=== PATIENT | female | born 1990 | race Caucasian/White ===

== ENCOUNTER 2017-03-19 19:56 | Emergency (ER) | payer OTHER ==
[2017-03-19 20:08] VITALS: BMI 27.3
--- NOTE | 2017-03-19 20:49 | PDOC ---
History of Present Illness - General History Source: Patient Exam Limitations: No Limitations - History of Present Illness Initial Comments: 03/19/17 20:57 The patient is a 26 year old female, 11 weeks , , with no significant past medical history, who presents to the ER with nausea, vomiting, and lightheadedness for several days. Patient states she had several episodes of nausea and nonbilious/nonbloody vomiting. Patient says she cannot tolerate solid PO secondary to the nausea and vomiting. She states her last ultrasound on March 06 was normal. Denies fever, chills, cough Denies abdominal pain, diarrhea Denies syncope Denies headache Denies dysuria, hematuria Denies weakness <Dhara Feldman - Last Filed: 03/19/17 23:29> - General History Source: Patient <Aurelio De La Rosa - Last Filed: 03/20/17 01:53> - General Chief Complaint: Lightheaded Stated Complaint: LIGHTHEADED Time Seen by Provider: 03/19/17 20:45 Past History <Dhara Feldman - Last Filed: 03/19/17 23:29> - Past Medical History Cardiac Disorders: Yes (HEART MURMUR) Diabetes: Yes Thyroid Disease: Yes (HYPO) - Reproductive History Therapeutic (s) & number: No - Immunization History Immunization Up to Date: Yes - Psycho/Social/Smoking Cessation Hx Anxiety: No Suicidal Ideation: No Smoking Status: Yes Smoking History: Former smoker Have you smoked in the past 12 months: Yes Number of Cigarettes Smoked Daily: 20 If you are a former smoker, when did you quit?: 01/2017 Information on smoking cessation initiated: No Hx Alcohol Use: Yes Substance Use Type: Alcohol, Marijuana <Aurelio De La Rosa - Last Filed: 03/20/17 01:53> - Past Medical History Allergies/Adverse Reactions: Allergies Allergy/AdvReac Type Severity Reaction Status Date / Time Penicillins Allergy Verified 01/01/15 16:56 Home Medications: Ambulatory Orders Metoclopramide HCl [Reglan -] 10 mg PO TID #30 tablet 03/20/17 Review of Systems - Review of Systems Able to Perform ROS?: Yes Comments:: 03/19/17 20:57 CONSTITUTIONAL: Present: (+) Lightheadedness secondary to nausea and vomiting Absent: fever, no chills, no fatigue EYES: Absent: visual changes ENT: Absent: ear pain, no sore throat CARDIOVASCULAR: Absent: chest pain, no palpitations RESPIRATORY: Absent: cough, no SOB GI: Present: (+) Nausea, (+) vomiting Absent: abdominal pain, no constipation, no diarrhea GENITOURINARY: Absent: dysuria, no frequency, no hematuria MUSCULOSKELETAL: Absent: back pain, no arthralgia, no myalgia SKIN: Absent: rash NEURO: Absent: headache <PrDhara ramirez - Last Filed: 03/19/17 23:29> *Physical Exam - Vital Signs Last Vital Signs Temp Pulse Resp BP Pulse Ox 98.3 F 86 18 113/68 03/19/17 20:05 03/19/17 20:05 03/19/17 20:05 03/19/17 20:05 - Physical Exam Comments: 03/19/17 20:58 GENERAL: Well-appearing, well-nourished. Mild distress. HEENT: Normocephalic, atraumatic. PERRL, EOM intact. CARDIOVASCULAR: Normal S1, S2. Regular rate and rhythm. PULMONARY: Clear to auscultation bilaterally. ABDOMEN: Soft, non-distended, non-tender. EXTREMITIES: Normal ROM in all four extremities. No gross deformities. SKIN: Warm, dry. No rash NEUROLOGICAL: No focal neurological deficits. <PrDhara ramirez - Last Filed: 03/19/17 23:29> - Vital Signs Last Vital Signs Temp Pulse Resp BP Pulse Ox 98.3 F 86 18 113/68 03/19/17 20:05 03/19/17 20:05 03/19/17 20:05 03/19/17 20:05 <Aurelio De La Rosa - Last Filed: 03/20/17 01:53> ED Treatment Course - LABORATORY CBC & Chemistry Diagram: 03/19/17 21:02 03/19/17 22:35 <FranciaDhara - Last Filed: 03/19/17 23:29> - LABORATORY CBC & Chemistry Diagram: 03/19/17 21:02 03/19/17 22:35 <Aurelio De La Rosa - Last Filed: 03/20/17 01:53> Medical Decision Making - Medical Decision Making 03/20/17 01:53 Dr. De La Rosa: The scribe's documentation has been prepared under my direction and personally reviewed by me in its entirery. I confirm that the note above accurately reflects all work, treatment, procedures, and medical decision making performed by me. <Aurelio De La Rosa - Last Filed: 03/20/17 01:53> *DC/Admit/Observation/Transfer - Attestations Scribe Attestion: 03/19/17 20:59 Documentation prepared by Dhara Feldman, acting as medical staff assistant for Aurelio De La Rosa DO. <Dhara Feldman - Last Filed: 03/19/17 23:29> - Discharge Dispostion Admit: No <Aurelio De La Rosa - Last Filed: 03/20/17 01:53> Diagnosis at time of Disposition: Hyperemesis gravidarum - Discharge Dispostion Disposition: HOME Condition at time of disposition: Improved - Referrals Referrals: Nikolay Jewell MD [Staff Physician] - - Patient Instructions Printed Discharge Instructions: DI for Hyperemesis Gravidarum Additional Instructions: Please follow up with your metallurgist process as scheduled. Take medication as directed. Drink plenty of fluids.
[2017-03-19] MEDS ORDERED: SODIUM CHLORIDE 1,000 ML IV STA (20:50)
[2017-03-19] MEDS ORDERED: METOCLOPRAMIDE HCL INJECTION 10 MG/2 ML VIAL IVPUSH ONE (20:51)
[2017-03-19] MEDS ORDERED: DEXTROSE 5%-LACTATED RINGERS 1,000 ML IV SCH (21:00)
[2017-03-19] MEDS ORDERED: METOCLOPRAMIDE HCL INJECTION 10 MG/2 ML VIAL ONE (21:45)
[2017-03-19 22:21] LABS: BASOPHIL 0.5 % (0-2.0); EOSINOPHIL 0.5 % (0-4.5); MCH 28.4 pg (25.7-33.7); MCHC 32.6 g/dl (32.0-36.0); MEAN CELL VOLUME 87.1 fl (80-96); MEAN PLT VOLUME 9.1 fl (7.5-11.1); NEUTROPHILS 68.5 % (42.8-82.8); PLATELET COUNT 274 K/MM3 (134-434); RDW 12.7 % (11.6-15.6); WHITE BLOOD COUNT 10.4 K/mm3 (4.0-10.0)
[2017-03-19 22:29] LABS: URINE APPEARANCE CLEAR; URINE BILIRUBIN NEGATIVE (NEGATIVE); URINE COLOR STRAW; URINE GLUCOSE (UA) NEGATIVE (NEGATIVE); URINE KETONE TRACE (NEGATIVE); URINE LEUK ESTERASE NEGATIVE (NEGATIVE); URINE NITRITE NEGATIVE (NEGATIVE); URINE PROTEIN NEGATIVE (NEGATIVE); URINE UROBILINOGEN NEGATIVE E.U./dl (0.2-1.0)
[2017-03-19 22:34] LABS: URINE BLOOD 1+ (NEGATIVE)
[2017-03-19 22:46] LABS: INR 1.07 (0.82-1.09); PROTHROMBIN TIME (PATIENT) 11.8 SEC (9.98-11.88)
[2017-03-19 22:47] LABS: URINE BACTERIA RARE /hpf (NONE SEEN); URINE MUCUS RARE; URINE RBC 1 /hpf (0-3); URINE WBC 3 /hpf (3-5)
[2017-03-19 23:07] LABS: ALBUMIN 2.7 g/dl (3.4-5.0); ALK PHOS 29 U/L (45-117); ANION GAP 10 (8-16); BILIRUBIN,TOTAL 0.2 mg/dL (0.2-1.0); CALCIUM 8.3 mg/dL (8.5-10.1); CO2 22 mmol/L (21-32); CREATININE 0.5 mg/dL (0.55-1.02); GLUCOSE,RANDOM 96 mg/dL (74-106); SGOT/AST 13 U/L (15-37); SGPT/ALT 14 U/L (12-78); TOT PROT 5.7 g/dl (6.4-8.2)
[2017-03-19 23:24] LABS: MAGNESIUM 1.8 mg/dL (1.8-2.4)
[2017-03-20 01:10] LABS: ACETONE SERUM NEGATIVE (NEGATIVE)
[2017-03-20 02:05] VITALS: BP 122/64; PULSE 78; TEMP 98.6
== END 2017-03-20 02:05 | disposition home or self-care (01) ==
LOC: JER 19:56
PROC: 3E0337Z Introduction of Electrolytic and Water Balance Substance into Peripheral Vein, Percutaneous Approach (ICD-10-PCS; principal; 2017-03-19)
PROC: 3E033GC Introduction of Other Therapeutic Substance into Peripheral Vein, Percutaneous Approach (ICD-10-PCS; 2017-03-19)
DX: O26.891 Other specified pregnancy related conditions, first trimester (principal); O21.0 Mild hyperemesis gravidarum; Z3A.11 11 weeks gestation of pregnancy
CPT/HCPCS: 36415; 80053; 81003; 81015; 82009; 83690; 83735; 84702; 85025; 85610; 87086; 99283-25

== ENCOUNTER 2017-05-13 19:08 | Emergency (ER) | payer OTHER ==
[2017-05-13 19:15] VITALS: BP 126/71; PULSE 98; TEMP 97.9; BMI 29.5
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
[2017-05-13 21:42] LABS: URINE APPEARANCE CLEAR; URINE BILIRUBIN NEGATIVE (NEGATIVE); URINE BLOOD NEGATIVE (NEGATIVE); URINE COLOR STRAW; URINE GLUCOSE (UA) NEGATIVE (NEGATIVE); URINE KETONE NEGATIVE (NEGATIVE); URINE LEUK ESTERASE NEGATIVE (NEGATIVE); URINE NITRITE NEGATIVE (NEGATIVE); URINE PROTEIN NEGATIVE (NEGATIVE); URINE UROBILINOGEN NEGATIVE mg/dL (0.2-1.0)
== END 2017-05-13 23:15 | disposition home or self-care (01) ==
LOC: JER 19:08
DX: O30.002 Twin pregnancy, unspecified number of placenta and unspecified number of amniotic sacs, second trimester (principal); M54.5 Low back pain; V43.62XA Car passenger injured in collision with other type car in traffic accident, initial encounter; Y92.414 Local residential or business street as the place of occurrence of the external cause; Y93.89 Activity, other specified; Z3A.19 19 weeks gestation of pregnancy; O99.282 Endocrine, nutritional and metabolic diseases complicating pregnancy, second trimester; E03.9 Hypothyroidism, unspecified; O24.912 Unspecified diabetes mellitus in pregnancy, second trimester
CPT/HCPCS: 76815-TC; 81003; 87086; 99283-25

== ENCOUNTER 2017-06-30 14:08 | Emergency (ER) | payer OTHER ==
[2017-06-30 14:17] VITALS: BP 108/60; PULSE 105; TEMP 98.2; BMI 32.8
--- NOTE | 2017-06-30 16:03 | PDOC ---
History of Present Illness - General Chief Complaint: Shortness of Breath Stated Complaint: 26 WKS PREG/SHORTNESS OF BREATH Time Seen by Provider: 06/30/17 15:12 History Source: Patient Exam Limitations: No Limitations - History of Present Illness Initial Comments: 06/30/17 15:54 Patient is a 27F currently 27wks with twins and DM here today complaining of shortness of breath. She was seen by her obgyn today and her check up was normal with the exception of her complaining of being short of breath. This has been going on for the past month, and has been slowly getting worse. She endorses associated cough. She denies chest pain, nausea, vomiting, fevers and chills. She denies abdominal pain, cramping and any feelings of labor. Past History - Past Medical History Allergies/Adverse Reactions: Allergies Allergy/AdvReac Type Severity Reaction Status Date / Time Penicillins Allergy Verified 06/30/17 14:17 Home Medications: Ambulatory Orders NK [No Known Home Medication] 05/13/17 Cardiac Disorders: Yes (HEART MURMUR) Diabetes: Yes Thyroid Disease: Yes (HYPO) - Reproductive History (#): 4 Para: 1 Therapeutic (s) & number: No - Immunization History Immunization Up to Date: Yes - Psycho/Social/Smoking Cessation Hx Anxiety: No Suicidal Ideation: No Smoking Status: Yes Smoking History: Former smoker Have you smoked in the past 12 months: No Number of Cigarettes Smoked Daily: 20 If you are a former smoker, when did you quit?: 01/2017 Information on smoking cessation initiated: No Hx Alcohol Use: No Drug/Substance Use Hx: No Substance Use Type: None Review of Systems - Review of Systems Comments:: 06/30/17 16:03 GENERAL/CONSTITUTIONAL: No fever or chills. No weakness. HEAD, EYES, EARS, NOSE AND THROAT: No change in vision. No ear pain or discharge. No sore throat. CARDIOVASCULAR: No chest pain or shortness of breath RESPIRATORY: No cough, wheezing, or hemoptysis. GASTROINTESTINAL: Positive for nausea and vomiting. Negative for diarrhea or constipation. GENITOURINARY: No dysuria, frequency, or change in urination. SKIN: No rash NEUROLOGIC: No headache, loss of consciousness, or change in strength/sensation. HEMATOLOGIC/LYMPHATIC: No anemia, easy bleeding, or history of blood clots. ALLERGIC/IMMUNOLOGIC: No hives or skin allergy. *Physical Exam - Vital Signs Last Vital Signs Temp Pulse Resp BP Pulse Ox 98.2 F 105 H 19 108/60 100 06/30/17 14:14 06/30/17 14:14 06/30/17 14:14 06/30/17 14:14 06/30/17 14:14 - Physical Exam Comments: 06/30/17 16:07 GENERAL: Awake, alert, and fully oriented, in no acute distress HEAD: No signs of trauma, normocephalic, atraumatic EYES: PERRLA, EOMI, sclera anicteric, conjunctiva clear ENT: Auricles normal inspection, hearing grossly normal, nares patent, oropharynx clear without exudates. Moist mucosa NECK: Normal ROM, supple, no lymphadenopathy, JVD, or masses LUNGS: No distress, speaks full sentences, clear to auscultation bilaterally HEART: Regular rate and rhythm, normal S1 and S2, no murmurs, rubs or gallops, peripheral pulses normal and equal bilaterally. ABDOMEN: Nontender, normoactive bowel sounds. No guarding, no rebound. EXTREMITIES: Normal inspection, Normal range of motion, no edema. No clubbing or cyanosis. NEUROLOGICAL: Cranial nerves II through XII grossly intact. Normal speech, no focal sensorimotor deficits SKIN: Warm, Dry, normal turgor, no rashes or lesions noted. Medical Decision Making - Medical Decision Making 06/30/17 16:07 Patient is a 27F 27wk woman here today complaining of SOB. Resting comfortably, laughing in room, lungs clear. Vital signs normal and stable. Will discharge to L&D, can go home if cleared from there. 06/30/17 18:05 Patient left without discharge paperwork. Nurse [facility] contacted patient who said she left because she needed to catch a bus. *DC/Admit/Observation/Transfer Diagnosis at time of Disposition: Qualifiers: Weeks of gestation: 27 weeks Qualified Code(s): Z3A.27 - 27 weeks gestation of - Discharge Dispostion Disposition: HOME Condition at time of disposition: Good Admit: No - Patient Instructions Additional Instructions: Please go to labor and delivery after leaving the ED. You can go home after they have evaluated you.
--- NOTE | 2017-06-30 16:18 | PDOC ---
Attending Attestation - Resident Resident Name: Franky Arias - ED Attending Attestation I have performed the following: I have examined & evaluated the patient, The case was reviewed & discussed with the resident, I agree w/resident's findings & plan, Exceptions are as noted - Medical Decision Making 06/30/17 16:15 A portion of this note was written by my scribe, under my supervision. Vital Signs Temp Pulse Resp BP Pulse Ox 98.2 F 105 H 19 108/60 100 06/30/17 14:14 06/30/17 14:14 06/30/17 14:14 06/30/17 14:14 06/30/17 14:14 27 year old female with no past medical history 27 weeks with twins sent in from her rifle case repairer doctor's office for SOB. The patient reports that in the last two months that she has been having persistent SOB for the last 2 months. States that as she's gotten more , she's been feeling moreSOB to which she attributes it to her weight. Denies chest pain. Pt reports that the symptoms are no different than two months ago. She had a routine visit to the rifle case repairer doctor, and the patient was directed to her ER. Given the chronicity of the complaints, at this time, would not have a workup performed at this time. I had discussed that PE could be possible, but would require a CT scan of the chest, which the patient absolutely would not want to do. Given that the symptoms are persistent for two weeks and that she has no acute complaints, will discharge patient with PMD follow up. <Nakul Garcia - Last Filed: 06/30/17 16:14> - HPI HPI: 06/30/17 16:24 The patient is a 27 year old female 27 weeks , with a significant past medical history of DM, hypothyroidism, Heart murmur who presents to the emergency department with dyspnea for the past 2 months. Patient was sent in by her RN [facility] for further evaluation. Currently, in the ED patient denies any complaints. She denies chest pain, headache or dizziness. She denies fever, chills, abdominal pain, nausea, vomit, diarrhea or constipation. She denies dysuria, frequency, urgency or hematuria. - Physicial Exam PE: 06/30/17 16:25 GENERAL: Awake, alert, and fully oriented, in no acute distress HEAD: No signs of trauma EYES: PERRLA, EOMI, sclera anicteric, conjunctiva clear ENT: Auricles normal inspection, hearing grossly normal, nares patent, oropharynx clear without exudates. Moist mucosa NECK: Normal ROM, supple, no lymphadenopathy, JVD, or masses LUNGS: Breath sounds equal, clear to auscultation bilaterally. No wheezes, and no crackles HEART: Regular rate and rhythm, normal S1 and S2, no murmurs, rubs or gallops ABDOMEN: +gravid abdomen. Nontender, normoactive bowel sounds. No guarding, no rebound. No masses EXTREMITIES: Normal range of motion, no edema. No clubbing or cyanosis. No cords, erythema, or tenderness NEUROLOGICAL: Cranial nerves II through XII grossly intact. Normal speech, normal gait SKIN: Warm, Dry, normal turgor, no rashes or lesions noted. - Medical Decision Making 06/30/17 16:25 Documentation prepared by Genny Brownlee, acting as bio medical technician for Nakul Garcia MD <Genny Brownlee - Last Filed: 06/30/17 16:26>
== END 2017-06-30 16:45 | disposition home or self-care (01) ==
LOC: JER 14:08
DX: O26.892 Other specified pregnancy related conditions, second trimester (principal); O24.912 Unspecified diabetes mellitus in pregnancy, second trimester; Z3A.27 27 weeks gestation of pregnancy; O99.282 Endocrine, nutritional and metabolic diseases complicating pregnancy, second trimester
CPT/HCPCS: 99282-25

== ENCOUNTER 2017-07-24 10:58 | Emergency (ER) | payer OTHER ==
[2017-07-24 11:05] VITALS: BMI 32.2
--- NOTE | 2017-07-24 11:39 | PDOC ---
Attending Attestation - HPI HPI: 07/24/17 12:28 27 yr old female currently 29 weeks with twins, with pmhx of DM, who presents to the emergency room with an actively bleeding boil on the left side of the head, dizziness, and nausea. She states that the boil started bleeding this morning around 8am. She does not remember irritating it and does not know how it began bleeding. She notes that she has not eaten anything this morning. Denies fever, chills. Denies chest pain, SOB, cough. Denies abdominal cramping, vaginal bleeding. Denies recent head trauma, any other injuries. Allergies: Penicillin OBGYN: Does not remember the name, but knows that she is supposed to deliver at [facility] - Physicial Exam PE: 07/24/17 12:29 Constitutional: Awake, alert, oriented. No acute distress. Eyes: PERRL. EOMI. Conjunctivae are not pale. ENT: Mucous membranes are moist and intact. Posterior pharynx without exudates or erythema. Uvula midline. Neck: Supple. Full ROM. No lymphadenopathy. Cardiovascular: Regular rate. Regular rhythm. S1, S2 regular. Distal pulses are 2+ and symmetric. Pulmonary/Chest: No evidence of respiratory distress. Clear to auscultation bilaterally No wheezing, rales or rhonchi. Abdominal: +gravid abdomen. Soft. There is no tenderness. No rebound, guarding or rigidity. No organomegaly. No palpable masses. Good bowel sounds. Back: No CVA tenderness. Musculoskeletal: No edema. No cyanosis. No clubbing. Full range of motion in all extremities. Nocalf tenderness. Radial/pedal pulses are intact and 2+ bilaterally Skin: +small soft tissue growth that is not actively bleeding. No redness. No surrounding edema. No purulent drainage.No abscess formation. Skin is warm and dry. No petechiae. No purpura. Neurological: Alert and oriented to person, place, and time. Cranial nerves II -XII are grossly intact. Normal speech. Strength is grossly symmetric. No sensory deficits. Psychiatric: Good eye contact. Normal interaction, affect and behavior. <Nat Conley - Last Filed: 07/24/17 12:27> - Resident Resident Name: Anahi Jordan - ED Attending Attestation I have performed the following: I have examined & evaluated the patient, The case was reviewed & discussed with the resident, I agree w/resident's findings & plan, Exceptions are as noted - Medical Decision Making 07/24/17 11:39 I, Dr. Yanci Sierra, DO, attest that this document has been prepared under my direction and personally reviewed by me in its entirety. I further attest, that it accurately reflects all work, treatment, procedures and medical decision -making performed by me. 07/24/17 12:30 a/p: 27yo female at 29weeks with twins (delivering at [facility]) -bleeding from scalp - small soft tissue growth - poss hemangioma - bleeding controlled. dressing applied. Will check labs, cbc/chem, will send to L&D for monitoring -discussed with L&D nurse who is expecting the patient. 07/24/17 12:36 pt stable for d/c from the ED. bleeding controlled. pt will need monitoring. will start IV and start IVF in ED, but stable for d/c and transfer to L&D. 07/24/17 12:40 <Yanci Sierra - Last Filed: 07/24/17 12:40> Discharge Disposition - Discharge Dispostion Last Admission D/C Date: 05/30/10 Admit: No <Yanci Sierra - Last Filed: 07/24/17 12:40> - Diagnosis Mass of soft tissue, Twin - Discharge Dispostion Disposition: HOME Condition at time of disposition: Stable - Referrals Referrals: Diego Rebollar MD [Staff Physician] - - Patient Instructions Printed Discharge Instructions: Hemangioma
--- NOTE | 2017-07-24 11:39 | PDOC ---
History of Present Illness - General Chief Complaint: Abscess Boil Stated Complaint: ABSCESS ON HEAD/ BLEEDING Time Seen by Provider: 07/24/17 11:14 - History of Present Illness Initial Comments: 07/24/17 19:06 Patient is a 27 y.o. female at 29 weeks gestation with a PMH of NIDDM who presents to our ED this morning c/o an actively bleeding scalp hemangioma. Patient notes she noticed the bleeding this morning at 8 a.m.. Patient denies any associated trauma to the area. Patient denies any shortness of breath, lightheadedness or chest pain. Moreover, patient notes she has been following with an change control manager @ [facility] (patient cannot recall the name) but states her has been without complications and she was evaluated by her change control manager two week previous. Past History - Past Medical History Allergies/Adverse Reactions: Allergies Allergy/AdvReac Type Severity Reaction Status Date / Time Penicillins Allergy Hives Verified 07/24/17 11:04 Home Medications: Ambulatory Orders NK [No Known Home Medication] 05/13/17 Cardiac Disorders: Yes (HEART MURMUR) Diabetes: Yes Thyroid Disease: Yes (HYPO) - Reproductive History (#): 4 Para: 1 Therapeutic (s) & number: No - Immunization History Immunization Up to Date: Yes - Suicide/Smoking/Psychosocial Hx Smoking Status: Yes Smoking History: Former smoker Have you smoked in the past 12 months: Yes Number of Cigarettes Smoked Daily: 20 If you are a former smoker, when did you quit?: 01/2017 Information on smoking cessation initiated: No Hx Alcohol Use: No Drug/Substance Use Hx: No Substance Use Type: None Review of Systems - Review of Systems Constitutional: No: Chills, Fever HEENTM: No: Blurred Vision, Throat Pain Respiratory: No: Cough, Shortness of Breath Cardiac (ROS): No: Chest Pain, Lightheadedness, Palpitations, Syncope ABD/GI: No: Constipated, Diarrhea, Nausea, Vomiting All Other Systems: Reviewed and Negative *Physical Exam - Vital Signs Last Vital Signs Temp Pulse Resp BP Pulse Ox 97.9 F 98 H 18 114/75 99 07/24/17 11:00 07/24/17 11:00 07/24/17 11:00 07/24/17 11:00 07/24/17 11:00 - Physical Exam General Appearance: Yes: Nourished, Appropriately Dressed HEENT: positive: EOMI, MONSERRAT Neck: positive: Tender, Supple Respiratory/Chest: positive: Lungs Clear, Normal Breath Sounds Cardiovascular: positive: Regular Rhythm, Regular Rate, S1, S2 Gastrointestinal/Abdominal: positive: Normal Bowel Sounds, Soft Extremity: positive: Normal Capillary Refill, Normal Inspection Integumentary: positive: Other (0.25 cm hemangioma on R anterior parietal lobe; intermittently actively bleeding during course of admission) Neurologic: positive: Fully Oriented, Alert ED Treatment Course - LABORATORY CBC & Chemistry Diagram: 07/24/17 13:05 07/24/17 13:05 Medical Decision Making - Medical Decision Making 07/24/17 19:14 Patient is a 27 y.o. female who presents with a 0.25 cm hemangioma intermittently bleeding during course of ED admission. Patient is hemodynamically stable, and CBC, CMP ordered to determine any anemia subsequent to bleed. Patient's hemangioma dressed with Bacitracin and loose Keflex wrap and patient discharged to L&D for evaluation. *DC/Admit/Observation/Transfer Diagnosis at time of Disposition: Mass of soft tissue, Twin - Discharge Dispostion Disposition: HOME Condition at time of disposition: Stable - Referrals Referrals: Diego Rebollar MD [Staff Physician] - - Patient Instructions Printed Discharge Instructions: Hemangioma Additional Instructions: follow up with your OB 07/30/17 as scheduled. If you experience any of the following go to L&D: -regular contractions -decreased movement -vaginal bleeding -your water breaks
[2017-07-24] MEDS ORDERED: SODIUM CHLORIDE 0.9% 1000 ML INFUS.BAG IV ONE (12:24)
[2017-07-24] MEDS ORDERED: BACITRACIN 0.9 GM PACKET ONE (12:27)
[2017-07-24 13:22] LABS: BASOPHIL 0.3 % (0-2.0); EOSINOPHIL 1.3 % (0-4.5); MCH 27.8 pg (25.7-33.7); MCHC 32.7 g/dl (32.0-36.0); MEAN CELL VOLUME 85.1 fl (80-96); NEUTROPHILS 69.5 % (42.8-82.8); PLATELET COUNT 272 K/MM3 (134-434); RDW 13.1 % (11.6-15.6); WHITE BLOOD COUNT 10.4 K/mm3 (4.0-10.0)
[2017-07-24 13:55] LABS: ALBUMIN 2.7 g/dl (3.4-5.0); ALK PHOS 84 U/L (45-117); ANION GAP 9 (8-16); BILIRUBIN,TOTAL 0.2 mg/dL (0.2-1.0); CALCIUM 8.8 mg/dL (8.5-10.1); CO2 24 mmol/L (21-32); CREATININE 0.4 mg/dL (0.55-1.02); GLUCOSE,RANDOM 88 mg/dL (74-106); SGOT/AST 17 U/L (15-37); SGPT/ALT 15 U/L (12-78); TOT PROT 6.6 g/dl (6.4-8.2)
[2017-07-24 14:25] VITALS: BP 100/64; PULSE 114; TEMP 98.1
== END 2017-07-24 16:02 | disposition home or self-care (01) ==
LOC: JER 10:58 → JERFT 10:58 → JER 16:02
PROC: 3E0337Z Introduction of Electrolytic and Water Balance Substance into Peripheral Vein, Percutaneous Approach (ICD-10-PCS; principal; 2017-07-24)
DX: O26.893 Other specified pregnancy related conditions, third trimester (principal); D18.09 Hemangioma of other sites; Z3A.29 29 weeks gestation of pregnancy; E11.9 Type 2 diabetes mellitus without complications; R01.1 Cardiac murmur, unspecified; E03.9 Hypothyroidism, unspecified; Z87.891 Personal history of nicotine dependence
CPT/HCPCS: 36415; 80053; 85025; 99281-25

== ENCOUNTER 2018-02-18 17:10 | Emergency (ER) | payer OTHER ==
[2018-02-18 17:16] VITALS: BP 133/79; PULSE 120; TEMP 98.5; BMI 25.7
--- NOTE | 2018-02-18 17:19 | PDOC ---
Rapid Medical Evaluation Chief Complaint: Sore Throat Time Seen by Provider: 02/18/18 17:18 Medical Evaluation: Allergies Allergy/AdvReac Type Severity Reaction Status Date / Time Penicillins Allergy Hives Verified 02/18/18 17:13 Vital Signs Temp Pulse Resp BP Pulse Ox 98.5 F 120 H 18 133/79 100 02/18/18 17:14 02/18/18 17:14 02/18/18 17:14 02/18/18 17:14 02/18/18 17:14 02/18/18 17:18 Pt c/o: sorethroat and chest congestion since thursday Pt on brief exam: erythema to post pharynx Pt ordered for: rapid strep Pt to proceed to the ED Discharge Disposition - Diagnosis Sore throat - Referrals - Patient Instructions - Post Discharge Activity
--- NOTE | 2018-02-18 17:23 | PDOC ---
History of Present Illness - General Chief Complaint: Sore Throat Stated Complaint: SORE THROAT Time Seen by Provider: 02/18/18 17:18 History Source: Patient Exam Limitations: No Limitations - History of Present Illness Initial Comments: 02/18/18 17:23 Patient is a 27-year-old female with no past medical history who presents emergency department today complaining of sore throat and chest congestion since Thursday. Patient states that her throat hurts and that is painful to swallow. She states she hasn't eaten since Thursday due to the pain. Patient also admits to chest pain on the left side. She states that the pain is worse when she moves or touches it. Denies fevers, chills, earache, nausea, vomiting, diarrhea. Past History - Travel Traveled outside of the country in the last 30 days: No Close contact w/someone who was outside of country & ill: No - Past Medical History Allergies/Adverse Reactions: Allergies Allergy/AdvReac Type Severity Reaction Status Date / Time Penicillins Allergy Hives Verified 02/18/18 17:13 Home Medications: Ambulatory Orders NK [No Known Home Medication] 05/13/17 Guaifenesin [Mucinex -] 600 mg PO BID #14 tablet.er 02/18/18 Ibuprofen 800 mg PO TID #30 tablet 02/18/18 Cardiac Disorders: Yes (HEART MURMUR) COPD: No Diabetes: Yes Thyroid Disease: Yes (HYPO) - Reproductive History (#): 4 Para: 1 Therapeutic (s) & number: No - Immunization History Immunization Up to Date: Yes - Suicide/Smoking/Psychosocial Hx Smoking Status: Yes Smoking History: Former smoker Have you smoked in the past 12 months: Yes Number of Cigarettes Smoked Daily: 20 If you are a former smoker, when did you quit?: 01/2017 Information on smoking cessation initiated: Yes 'Breaking Loose' booklet given: 02/18/18 Hx Alcohol Use: No Drug/Substance Use Hx: No Substance Use Type: None Review of Systems - Review of Systems Able to Perform ROS?: Yes Comments:: 02/18/18 17:21 CONSTITUTIONAL: Absent: fever, chills, diaphoresis, generalized weakness, malaise, loss of appetite HEENT: Present: sore throat, difficulty swallowing Absent: rhinorrhea, nasal congestion , throat pain, throat swelling, mouth swelling, ear pain, eye pain, visual Changes CARDIOVASCULAR: Present: chest pain Absent: loss of consciousness, palpitations, irregular heart rate, peripheral edema RESPIRATORY: Absent: cough, shortness of breath, dyspnea with exertion, orthopnea, wheezing, stridor, hemoptysis GASTROINTESTINAL: Absent: abdominal pain, abdominal distension, nausea, vomiting, diarrhea, constipation, melena, hematochezia GENITOURINARY: Absent: dysuria, frequency, urgency, hesitancy, hematuria, flank pain, genital pain MUSCULOSKELETAL: Absent: myalgia, arthralgia, joint swelling SKIN: Absent: rash, itching, pallor NEUROLOGIC: Absent: headache, focal weakness or paresthesias, dizziness, unsteady gait, seizure, mental status changes, bladder or bowel incontinence PSYCHIATRIC: Absent: anxiety, depression, suicidal or homicidal ideation, hallucinations. Is the patient limited Nepalese proficient: No *Physical Exam - Vital Signs Last Vital Signs Temp Pulse Resp BP Pulse Ox 98.5 F 120 H 18 133/79 100 02/18/18 17:14 02/18/18 17:14 02/18/18 17:14 02/18/18 17:14 02/18/18 17:14 - Physical Exam Comments: 02/18/18 17:22 GENERAL: Well developed, well nourished. Awake and alert. No acute distress. HEENT: Normocephalic, atraumatic. PERRLA, EOMI. No conjunctival pallor. Sclera are non- icteric. Moist mucous membranes. Oropharynx is with erythema posteriorly. Tonsils 2+, no exudate. NECK: Supple. Full ROM. No JVD. Carotid pulses 2+ and symmetric, without bruits. No thyromegaly. No lymphadenopathy. CARDIOVASCULAR: TTP of the L Chest. Regular rate and rhythm. No murmurs, rubs, or gallops. Distal pulses are 2+ and symmetric. PULMONARY: No evidence of respiratory distress. Lungs clear to auscultation bilaterally. No wheezing, rales or rhonchi. SKIN: Warm and dry. Normal capillary refill. No rashes. No jaundice. NEUROLOGICAL: Alert, awake, appropriate. Cranial nerves 2-12 intact. No deficits to light touch and temperature in face, upper extremities and lower extremities. No motor deficits in the in face, upper extremities and lower extremities. Normoreflexic in the upper and lower extremities. Normal speech. Toes are down- going bilaterally. Gait is normal without ataxia. Medical Decision Making - Medical Decision Making 02/18/18 19:21 Patient is a 27-year-old female no past medical history who presents emergency department today complaining of sore throat and chest pain since Thursday. Rapid strep ordered from [facility] is negative at this time. Patient given ibuprofen and steroids with little relief. Patient requesting chest x-ray at this time. Urine is negative. Awaiting results. 02/18/18 19:54 Chest x-ray is negative for PNA, pneumo. Pain most likely d.t a viral syndrome. Will d/c home with supportive measures. Return precautions given. Pt. understands all dc instructions and all questions were answered. *DC/Admit/Observation/Transfer Diagnosis at time of Disposition: Sore throat - Discharge Dispostion Disposition: HOME Condition at time of disposition: Stable Admit: No - Prescriptions Prescriptions: Guaifenesin [Mucinex -] 600 mg PO BID #14 tablet.er Ibuprofen 800 mg PO TID #30 tablet - Referrals Referrals: Mode Lundberg MD [Staff Physician] - - Patient Instructions Printed Discharge Instructions: DI for Pharyngitis/Tonsillopharyngitis -- Adult Additional Instructions: You have a sore throat. Your strep test was negative Take the Mucinex twice a day for a week to help with congestion. You may take Motrin 800 mg every 8 hours as needed for pain or fever. Warm water gargles and cough drops and just may also help her symptoms. Please throw way your toothbrush 3 days into treatment to prevent reinfection. Please follow up with your primary care doctor next week. Return to emergency department if you have worsening pain, difficulty swallowing , changes in your voice, lightheadedness, dizziness, or any changes in your symptoms. - Post Discharge Activity Forms/Work/School Notes: Back to Work
[2018-02-18] MEDS ORDERED: IBUPROFEN 100 MG/5 ML UNIT DOSE CUPS PO ONE (17:45)
[2018-02-18] MEDS ORDERED: predniSONE 20 MG TABLET (UD) PO ONE (17:45)
[2018-02-18] MEDS ORDERED: predniSONE 20 MG TABLET (UD) ONE ×2 (17:47→17:51)
[2018-02-18] MEDS ORDERED: IBUPROFEN 600 MG TABLET (FP) PO ONE (17:47)
[2018-02-18] MEDS ORDERED: IBUPROFEN 100 MG/5 ML UNIT DOSE CUPS ONE (17:49)
[2018-02-18] MEDS ORDERED: prednisoLONE SODIUM PHOSPHATE 15 MG/5 ML ORAL SOLN BOTTLE ONE (17:50)
== END 2018-02-18 20:03 | disposition home or self-care (01) ==
LOC: JERFT 17:10
DX: J02.9 Acute pharyngitis, unspecified (principal); R01.1 Cardiac murmur, unspecified; E11.9 Type 2 diabetes mellitus without complications; E03.9 Hypothyroidism, unspecified; Z87.891 Personal history of nicotine dependence
CPT/HCPCS: 71046-TC-FY; 84703; 87070; 87430; 99281-25

== ENCOUNTER 2020-12-02 22:07 | Emergency (ER) | payer OTHER ==
[2020-12-02 22:17] VITALS: BP 125/80; PULSE 82; TEMP 98.5; BMI 27.4
[2020-12-02] MEDS ORDERED: ONDANSETRON *ODT* 4 MG TABLET SL ONE (23:30)
[2020-12-02] MEDS ORDERED: ACETAMINOPHEN 325 MG TABLET (FP) PO ONE (23:31)
== END 2020-12-03 00:30 | disposition left against medical advice (07) ==
LOC: JER 22:07
DX: R51.9 Headache, unspecified (principal)
CPT/HCPCS: 99284-25